=== PATIENT | female | born 1985 | race Caucasian/White ===

== ENCOUNTER 2021-11-14 00:14 | Emergency (ER) | payer OTHER | END 2021-11-14 06:15 | disposition short-term general hospital (02) | LOC: ER1 00:14 | DX: S82.142A Displaced bicondylar fracture of left tibia, initial encounter for closed fracture (principal); S82.402A Unspecified fracture of shaft of left fibula, initial encounter for closed fracture; F17.290 Nicotine dependence, other tobacco product, uncomplicated; W10.9XXA Fall (on) (from) unspecified stairs and steps, initial encounter; Y92.009 Unspecified place in unspecified non-institutional (private) residence as the place of occurrence of the external cause | CPT/HCPCS: 73562; 73590; 73610; 96374; 96375; 99284; J1885; J2270; J2405 ==